=== PATIENT | male | born 1950 | race Caucasian/White ===

== ENCOUNTER 2023-12-12 07:55 | Day surgery (SDC) | payer MEDICARE ==
[2023-12-12] MEDS: Sodium Chloride 0.9% 10 ML Syringe FLUSH PRN (08:33)
[2023-12-12 09:11] VITALS: BP 137/74; PULSE 74
== END 2023-12-12 09:26 | disposition home or self-care (01) ==
LOC: JP.SDS 07:55
PROVIDERS: ATTEND Ophthalmology
DX: H25.811 Combined forms of age-related cataract, right eye (principal)
CPT/HCPCS: J3490; V2632